=== PATIENT | female | born 2000 | race African-American/Black ===

== ENCOUNTER 2021-12-12 18:40 | Emergency (ER) | payer OTHER ==
[~2021-12-12] VITALS: Ht 170.2 cm; Wt 71.8 kg
[2021-12-12 18:42] VITALS: TEMP 97.1
[2021-12-12 19:36] LABS: BASO % 0.3 % (0.0-2.0); EOS # 0.1 K/mm3 (0.0-0.7); EOS % 1.6 % (0.0-4.0); GRAN % 54.3 % (42.2-75.2); HEMOGLOBIN 11.7 g/dl (12.5-16.0); LYMPH # 2.6 K/mm3 (1.2-3.4); LYMPH % 34.9 % (20.0-51.0); MEAN CELL VOLUME 102 fl (80.0-100.0); MEAN CORPUSCULAR HEMOGLOBIN 35 pg (27-31); MEAN CORPUSCULAR HGB CONC 34 g/dl (33.0-37.0); MEAN PLATELET VOLUME 10.2 fl (7.4-10.4); MONO # 0.6 K/mm3 (0.1-0.6); MONO % 8.6 % (1.7-9.3); PLATELET COUNT 237 K/mm3 (130-400); RED BLOOD COUNT 3.37 M/mm3 (4.10-5.30)
[2021-12-12 19:39] LABS: HEMATOCRIT 34.3 % (37.0-47.0)
[2021-12-12 19:45] LABS: ALBUMIN 3.2 gm/dL (3.5-5.0); BILIRUBIN,TOTAL 0.5 mg/dL (0.2-1.2); CALCIUM 8.1 mg/dL (8.4-10.2); CREATININE, serum 0.71 mg/dL (0.57-1.11); POTASSIUM 3.6 mmol/L (3.5-4.5); TOTAL PROTEIN 5.6 gm/dL (6.2-8.1)
[2021-12-12 20:20] LABS: COLLECTION METHOD CLEAN CATCH
[2021-12-12 20:38] LABS: MUCOUS Present (NOT PRESENT); URINE BACTERIA None Seen /hpf (NONE SEEN); URINE CALCIUM OXALATE CRYSTAL Present (NOT PRESENT)
[2021-12-12 20:39] LABS: URINE COLOR Yellow (YELLOW)
[2021-12-12 20:40] LABS: URINE APPEARANCE Cloudy (CLEAR/HAZY); URINE BLOOD Negative (NEGATIVE); URINE GLUCOSE Negative (NEGATIVE); URINE KETONE 1+ (NEGATIVE); URINE NITRATE Negative (NEGATIVE); URINE PROTEIN(semi-quant) 2+ (NEGATIVE); URINE UROBILINOGEN 0.2 E.U/dL (0.2-1.0)
[2021-12-12 20:57] VITALS: BP 115/73; PULSE 70
== END 2021-12-12 20:58 | disposition home or self-care (01) ==
LOC: COL.ER 18:40
PROVIDERS: Physician Assistant
DX: R55 Syncope and collapse (principal); Z28.310 Unvaccinated for COVID-19
CPT/HCPCS: J7030